=== PATIENT | female | born 1990 | race Caucasian/White ===

== ENCOUNTER 2017-01-11 17:38 | Emergency (ER) | payer SELFPAY ==
[~2017-01-11] VITALS: Ht 165.1 cm; Wt 72.6 kg
[2017-01-11 17:38] VITALS: BP 123/78
== END 2017-01-11 19:01 | disposition home or self-care (01) ==
LOC: ER 17:38
DX: S16.1XXA Strain of muscle, fascia and tendon at neck level, initial encounter (principal); J45.909 Unspecified asthma, uncomplicated; R51 Headache; V43.52XA Car driver injured in collision with other type car in traffic accident, initial encounter; Y93.89 Activity, other specified; Y92.410 Unspecified street and highway as the place of occurrence of the external cause; Y99.8 Other external cause status
CPT/HCPCS: 99283; A4606; Z7610